=== PATIENT | female | born 1995 ===

== ENCOUNTER 2019-07-29 13:50 | Emergency (ER) | payer OTHER, MEDICAID, SELFPAY ==
[2019-07-29 13:57] VITALS: BP 124/57; PULSE 86; RESP 16; TEMP 36.3; O2SAT 100; BMI 32.3
[2019-07-29 15:22] VITALS: BP 96/54; PULSE 71; RESP 16; O2SAT 97
--- NOTE | 2019-07-29 15:23 | PC.NURSE ---
patient placed in room 3. obtained updated vital signs. lights dimmed for comfort.
--- NOTE | 2019-07-29 17:06 | DI.CT.S_ITS ---
PROCEDURE: CT HEAD/BRAIN WO CON INDICATIONS: severe headache with vomiting. no hx of migraine/tension pineda TECHNIQUE: Noncontrast 4.5 mm thick angled axial sections acquired from the foramen magnum to the vertex, with coronal and sagittal reformats. For radiation dose reduction, the following was used: automated exposure control, adjustment of mA and/or kV according to patient size. COMPARISON: None. FINDINGS: Image quality: Excellent. CSF spaces: Basal cisterns are patent. No extra-axial fluid collections. Ventricles are normal in size and shape. Brain: No midline shift. No intracranial masses or hemorrhage. Mena-white matter interface is normal. Skull and face: Calvarium and visualized facial bones are intact, without suspicious lesions. Sinuses: Visualized sinuses and mastoids are clear. IMPRESSION: No acute intracranial hemorrhage is seen. No acute intracranial process is seen. Dictated by: Josué Martinez M.D. on 07/29/2019 at 16:48 Approved by: Josué Martinez M.D. on 07/29/2019 at 16:48
[2019-07-29 17:37] LABS: Add Manual Diff / Slide Review NO; Basophils Absolute Auto 0 /uL (0-100); Basophils Percent Auto 0.6 % (0-2); Eosinophils Absolute Auto 300 /uL (0-450); Eosinophils Percent Auto 3.7 % (2-4); Hematocrit 33.6 % (36-46); Hemoglobin 11.2 g/dL (12.0-16.0); Lymphocytes Absolute Auto 2200 /uL (1100-4500); Lymphocytes Percent Auto 28.3 % (25-40); Mean Corpuscular HGB Conc 33.4 % (30-36); Mean Corpuscular Hemoglobin 28.5 PG (26-34); Mean Corpuscular Volume 85.5 fL (80-100); Monocytes Absolute Auto 500 /uL (0-900); Monocytes Percent Auto 6.9 % (3-14); Neutrophils Absolute Auto 4700 /uL (1500-7000); Neutrophils Percent Auto 60.5 % (50-75); Platelet Count 198 X10^3/uL (150-400); Red Blood Cell Count 3.93 X10^6/uL (4.0-5.2); Red Cell Distribution Width 15.9 % (11.6-14.8); White Blood Cell Count 7.7 X10^3/uL (4.5-11.0)
[2019-07-29] MEDS: KETOROLAC 60 MG/2 ML VIAL 15 MG IV (17:47)
[2019-07-29] MEDS: PROCHLORPERAZINE 10 MG/2 ML VIAL IV (17:47)
[2019-07-29] MEDS: diphenhydrAMINE 50 MG/ML VIAL 25 MG IV (17:47)
[2019-07-29] MEDS: SODIUM CHLORIDE 0.9% 1,000 ML 1000 ML IV (17:48)
--- NOTE | 2019-07-29 17:52 | ED_ITS ---
HPI - Headache <FARHAT ManriqueP - Last Filed: 07/29/19 19:24> General Chief Complaint: Headache Stated Complaint: Headache/Chills/Vomitting Time Seen by Provider: 07/29/19 15:23 Source: patient Mode of arrival: Ambulatory Limitations: no limitations History of Present Illness HPI Narrative: This is a 23 year female, smoker, who has no history of previous headache presents to ED with chief complain of pounding headache which started yesterday. Patient reports initially the pain was located in right frontal region which now changed to posterior headache. Patient states she had vomited once. She reports no vision change, there is no aggravating or relieving associated factors, she denies recent URI symptoms, ear pain, rash, or nuchal rigidity. Patient denies fever, chills. Patient denies recent head injury or trauma. Patient has history of thyroid cancer with thyroidectomy and now she is taking levothyroxine daily. She also has history of hep C and states she was heroin addict in the past and now she is taking Suboxone. PCP is Dr. Lomeli at [facility] in [place]. Related Data Home Medications Medication Instructions Recorded Confirmed buprenorphine-naloxone [Suboxone] 2 film BUCCAL DAILY 07/29/19 07/29/19 levothyroxine 100 mcg PO DAILY 07/29/19 07/29/19 Allergies Allergy/AdvReac Type Severity Reaction Status Date / Time No Known Drug Allergies Allergy Verified 07/29/19 14:00 Review of Systems <Surinder SarkarWilli [facility] - Last Filed: 07/29/19 19:24> Review of Systems Narrative: General: Denies fever, chills, fatigue, malaise, sweats. HEENT: Denies sinus pain, ear pain, sore throat, difficulty swallowing, dizziness. Respiratory: Denies dyspnea, cough, wheezing, hemoptysis, sputum. Cardiovascular: Denies chest pain, palpitations, orthopnea, edema. Gastrointestinal: Denies nausea, vomiting, abdominal pain, diarrhea, constipation, melena. : Denies dysuria, frequency, incontinence, hematuria, urinary retention. Musculoskeletal: Denies weakness, joint pain or bony pain. Skin: Denies rash, skin lesions, or other. Neurologic: See HPI Psychiatric: No concerning psychosocial issues. 12-point review of systems is negative except for those stated above. Patient History <BARRON Manrique - Last Filed: 07/29/19 19:24> Medical History Hepatitis C (Acute) History of heroin use (Acute) Thyroid cancer (Acute) Surgical History H/O thyroidectomy (Acute) Social History Smoking Status: Current every day smoker Smoking Status: Current every day smoker alcohol intake frequency: 0-2 drinks per day Substance Use Type: does not use Exam <BARRON Manrique - Last Filed: 07/29/19 19:24> Narrative Exam Narrative: GEN: Alert, oriented x 3, well nourished, and in moderate distress. Patient resting in dark room due to headache. Head: Normal cephalic, atraumatic. No scalp or temporal tenderness, palpable mass or rash. EYES: Pupils are equal, round, and reactive to light and accommodation. Photosensitivity. Extraocular muscles are intact bilaterally. There is no subconjunctival hemorrhage, exudate and sclera non-icteric. ENT: Hearing grossly intact. Nose without bleeding, purulent discharge or deviation. Mucous membrane moist, no mucosal lesion. Throat without erythema, tonsillar hypertrophy or exudate. Uvula in midline, airway patent. Neck: Trachea in midline. No JVD, non-tender without lymphadenopathy. No masses or thyroid megaly. Supple, non-tender and no meningeal signs. CARDIAC: Normal regular rate and rhythm without murmurs, gallops, or rubs. No chest wall tenderness. No peripheral edema, cyanosis or pallor. Capillary refill is less than 2 seconds. RESPIRATORY: Lungs are clear to auscultate bilaterally. No cough, wheezes, rales, or rhonchi. No stridor, respiratory distress, increase work of br eathing, or accessary muscle used. ABD: Abdomen soft, nontender and non-distended. No guarding or rebound tenderness to palpate. Bowel sounds are normal in all 4 quadrants. There is no palpable masses or organomegaly. EXT: Full painless ROM of all extremities with no loss of sensation, strength, effusion or edema. SKIN: Warm, dry, normal color for patient. No erythema, lesions or rash over visible areas. BACK: Nontender without deformity or crepitance. No flank tenderness. NEUROLOGICAL: Alert and oriented to place, time and person. Sensation and motor function intact bilaterally. No facial droops, dysphasia. PSYCHIATRIC: Good judgement and reason, without hallucinations, abnormal affect or abnormal behaviors during the examination. Patient is not suicidal. Initial Vital Signs Initial Vital Signs: Vital Signs Temperature 97.4 F L 07/29/19 13:57 Pulse Rate 86 07/29/19 13:57 Respiratory Rate 16 07/29/19 13:57 Blood Pressure 124/57 L 07/29/19 13:57 Pulse Oximetry 100 07/29/19 13:57 <Jaiden Juares MD - Last Filed: 08/10/19 07:26> Initial Vital Signs Initial Vital Signs: Vital Signs Temperature 97.4 F L 07/29/19 13:57 Pulse Rate 86 07/29/19 13:57 Respiratory Rate 16 07/29/19 13:57 Blood Pressure 124/57 L 07/29/19 13:57 Pulse Oximetry 100 07/29/19 13:57 Scores <[facility] - Last Filed: 07/29/19 19:24> GCS Ashok coma scale eye opening: Spontaneous [place] coma scale verbal response: Orientated [place] coma scale motor response: Obey commands [place] coma scale total score: 15 Course <[facility] - Last Filed: 07/29/19 19:24> Orders Ordered: Discontinued Medications Diphenhydramine HCl (Benadryl) 25 mg IV NOW ONE Stop: 07/29/19 16:35 Last Admin: 07/29/19 17:47 Dose: 25 mg Documented by: TYE Sodium Chloride (Normal Saline 0.9%) 1,000 mls @ 1,000 mls/hr IV BOLUS ONE Stop: 07/29/19 17:33 Last Infusion: 07/29/19 18:35 Dose: 0 mls/hr Documented by: Admin: 07/29/19 17:48 Dose: 1,000 mls/hr Documented by: TYE Ketorolac Tromethamine (Toradol) 15 mg IV NOW ONE Stop: 07/29/19 16:35 Last Admin: 07/29/19 17:47 Dose: 15 mg Documented by: TYE Prochlorperazine (Compazine) 10 mg IV NOW ONE Stop: 07/29/19 16:35 Last Admin: 07/29/19 17:47 Dose: 10 mg Documented by: TYE Vital Signs Vital signs: Vital Signs - 8 hr 07/29/19 13:57 07/29/19 15:22 07/29/19 18:06 Temperature 97.4 F L Pulse Rate 86 71 67 Respiratory Rate 16 16 15 Blood Pressure 124/57 L Blood Pressure [Right Arm] 96/54 L 102/57 L Pulse Oximetry 100 97 100 <Jaiden Juares MD - Last Filed: 08/10/19 07:26> Orders Ordered: Discontinued Medications Diphenhydramine HCl (Benadryl) 25 mg IV NOW ONE Stop: 07/29/19 16:35 Last Admin: 07/29/19 17:47 Dose: 25 mg Documented by: TYE Sodium Chloride (Normal Saline 0.9%) 1,000 mls @ 1,000 mls/hr IV BOLUS ONE Stop: 07/29/19 17:33 Last Infusion: 07/29/19 18:35 Dose: 0 mls/hr Documented by: Admin: 07/29/19 17:48 Dose: 1,000 mls/hr Documented by: TYE Ketorolac Tromethamine (Toradol) 15 mg IV NOW ONE Stop: 07/29/19 16:35 Last Admin: 07/29/19 17:47 Dose: 15 mg Documented by: TYE Prochlorperazine (Compazine) 10 mg IV NOW ONE Stop: 07/29/19 16:35 Last Admin: 07/29/19 17:47 Dose: 10 mg Documented by: TYE Vital Signs Vital signs: Vital Signs - 8 hr 07/29/19 13:57 07/29/19 15:22 07/29/19 18:06 Temperature 97.4 F L Pulse Rate 86 71 67 Respiratory Rate 16 16 15 Blood Pressure 124/57 L Blood Pressure [Right Arm] 96/54 L 102/57 L Pulse Oximetry 100 97 100 MDM - Headache <BARRON Manrique - Last Filed: 07/29/19 19:24> Differential Diagnosis Differential diagnosis: Likely migraine, headache, meningitis and other (Cranial hemorrhage, tumor) Medical Records Attestation: I reviewed the patient's medical records. Lab Data Attestation: I reviewed the patient's lab results. Result diagrams: 07/29/19 17:20 07/29/19 17:20 Labs: Lab Results 07/29/19 07/29/19 Range/Units 17:20 17:20 WBC 7.7 (4.5-11.0) X10^3/uL RBC 3.93 L (4.0-5.2) X10^6/uL Hgb 11.2 L (12.0-16.0) g/dL Hct 33.6 L (36-46) % MCV 85.5 (80-100) fL MCH 28.5 (26-34) PG MCHC 33.4 (30-36) % RDW 15.9 H (11.6-14.8) % Plt Count 198 (150-400) X10^3/uL Neut % (Auto) 60.5 (50-75) % Lymph % (Auto) 28.3 (25-40) % Gulf % (Auto) 6.9 (3-14) % Eos % (Auto) 3.7 (2-4) % Baso % (Auto) 0.6 (0-2) % Neut # (Auto) 4700 (9021-2042) /uL Lymph # (Auto) 2200 (5537-3062) /uL Gulf # (Auto) 500 (0-900) /uL Eos # (Auto) 300 (0-450) /uL Baso # (Auto) 0 (0-100) /uL Sodium 136 L (137-145) mmol/L Potassium 4.6 (3.4-5.1) mmol/L Chloride 104 (98-107) mmol/L Carbon Dioxide 27 (22-32) mmol/L BUN 12 (7-17) mg/dL Creatinine 0.61 (0.52-1.04) mg/dL Estimated GFR > 60.0 (>60) mL/min BUN/Creatinine Ratio 19.7 (6-22) Glucose 83 (70-100) mg/dL Calcium 9.3 (8.4-10.2) mg/dL Imaging Data CT scan - head: Radiologist's Impression: [address] [address] [address] Scan Report Signed Patient: Ximena Crain [facility]#: [id number] : 1995Acct:[id number] Age/Sex: 23 / FDate of Service: 07/29/19 Loc: ED Accession Number: [id number] Procedure: CT head/brain wo con Ordering Provider: Surinder Cobos PROCEDURE: CT HEAD/BRAIN WO CON INDICATIONS: severe headache with vomiting. no hx of migraine/tension pineda TECHNIQUE: Noncontrast 4.5 mm thick angled axial sections acquired from the foramen magnum to the vertex, with coronal and sagittal reformats. For radiation dose reduction, the following was used: automated exposure control, adjustment of mA and/or kV according to patient size. COMPARISON: None. FINDINGS: Image quality: Excellent. CSF spaces: Basal cisterns are patent. No extra-axial fluid collections. Ve ntricles are normal in size and shape. Brain: No midline shift. No intracranial masses or hemorrhage. Mena-white matter interface is normal. Skull and face: Calvarium and visualized facial bones are intact, without suspicious lesions. Sinuses: Visualized sinuses and mastoids are clear. IMPRESSION: No acute intracranial hemorrhage is seen. No acute intracranial process is seen. Dictated by: Josué Martinez M.D. on 07/29/2019 at 16:48 Approved by: Josué Martinez M.D. on 07/29/2019 at 16:48 [facility] Narrative Medical decision making narrative: This is a 23-year-old female presents to ED with significant headache which started yesterday with photophobia and nausea and vomiting. Patient does not have history of frequent or migraine headaches. Patient states she has not experienced similar headaches in the past. Due to patient's 1st significant headache CT test was obtained which indicates no acute findings such as masses or hemorrhage. Patient was treated with normal saline IV fluid, IV Benadryl, Reglan and Toradol as similar to migraine treatment. Patient does not exhibit nuchal rigidity or unusual rashes. Patient is afebrile. Patient reports she is feeling better and would like to go home when she was re-evaluated. Return precautions were discussed with the patient and patient verbalized understanding and agreement with the treatment plan. <Jaiden Juares MD - Last Filed: 08/10/19 07:26> Lab Data Labs: Lab Results 07/29/19 07/29/19 Range/Units 17:20 17:20 WBC 7.7 (4.5-11.0) X10^3/uL RBC 3.93 L (4.0-5.2) X10^6/uL Hgb 11.2 L (12.0-16.0) g/dL Hct 33.6 L (36-46) % MCV 85.5 (80-100) fL MCH 28.5 (26-34) PG MCHC 33.4 (30-36) % RDW 15.9 H (11.6-14.8) % Plt Count 198 (150-400) X10^3/uL Neut % (Auto) 60.5 (50-75) % Lymph % (Auto) 28.3 (25-40) % Gulf % (Auto) 6.9 (3-14) % Eos % (Auto) 3.7 (2-4) % Baso % (Auto) 0.6 (0-2) % Neut # (Auto) 4700 (3745-0682) /uL Lymph # (Auto) 2200 (3251-4509) /uL Gulf # (Auto) 500 (0-900) /uL Eos # (Auto) 300 (0-450) /uL Baso # (Auto) 0 (0-100) /uL Sodium 136 L (137-145) mmol/L Potassium 4.6 (3.4-5.1) mmol/L Chloride 104 (98-107) mmol/L Carbon Dioxide 27 (22-32) mmol/L BUN 12 (7-17) mg/dL Creatinine 0.61 (0.52-1.04) mg/dL Estimated GFR > 60.0 (>60) mL/min BUN/Creatinine Ratio 19.7 (6-22) Glucose 83 (70-100) mg/dL Calcium 9.3 (8.4-10.2) mg/dL Discharge Plan Departure Patient Disposition: Home Clinical Impression: Headache Qualifiers: Headache type: unspecified Headache chronicity pattern: acute headache Intractability: not intractable Qualified Code(s): R51 - Headache Discharge Date/Time: 07/29/19 19:27 Instructions: DI for Headache Activity Restrictions/Additional Instructions: You have been diagnosed with [headache. Head CT does not indicate acute findings such as masses or hemorrhage. Blood test shows very mild anemia of hemoglobin 11.2/hematocrit 33.6. Chemistry test was unremarkable except mildly decreased sodium level of 136. ]. What to do: *Take your medications as directed. As you were treated with IV fluid of normal saline, IV Benadryl, Reglan, Toradol which improved your pain. You can take [id number] Tylenol and or Motrin as needed for discomfort. Tylenol up to 1000 mg at a time 4 times a day as needed. Ibuprofen/Motrin 400-600 mg up to 3 times a day as needed with food. *Follow up with your primary care provider in 2-3 days, call for an appointment. Let them know you were seen in the ED and that we asked you to be seen in follow up. *Return to ED if you have any new, worsening, or concerning symptoms, such as [increasing pain, chest pain, breathing difficulty, unable to tolerate fluids, fever, nuchal rigidity, unusual rashes or any acute concerns]. Prescriptions: No Action levothyroxine 100 mcg Capsule 100 mcg PO DAILY RF: 0 buprenorphine-naloxone [Suboxone] 12-3 mg Film 2 film BUCCAL DAILY RF: 0 Referrals: Lennox Duron [Primary Care Provider] -
[2019-07-29 17:58] LABS: BUN Creatinine Ratio 19.7 (6-22); Blood Urea Nitrogen 12 mg/dL (7-17); Calcium 9.3 mg/dL (8.4-10.2); Carbon Dioxide 27 mmol/L (22-32); Chloride 104 mmol/L (98-107); Estimated Glomerular Filt Rate > 60.0 mL/min (>60); Glucose 83 mg/dL (70-100); HEMOLYSIS 40 (0-50); Potassium 4.6 mmol/L (3.4-5.1); Sodium 136 mmol/L (137-145)
[2019-07-29 18:06] VITALS: BP 102/57; PULSE 67; RESP 15; O2SAT 100
[2019-07-29 19:18] VITALS: BP 97/52; PULSE 70; RESP 16; O2SAT 98
== END 2019-07-29 19:27 | disposition home or self-care (01) ==
PROVIDERS: Emergency Provider Nurse Practitioner Family; PCP Family Medicine
DX: R51 Headache (principal); R11.2 Nausea with vomiting, unspecified
CPT/HCPCS: 70450; 80048; 85025; 96361; 96374; 96375; 99284; J0780; J1200; J1885